=== PATIENT | female | born 1960 | race Caucasian/White ===

== ENCOUNTER 2022-07-26 12:29 | Emergency (ER) | payer BC ==
[~2022-07-26] VITALS: Ht 167.6 cm; Wt 79.4 kg
[2022-07-26] MEDS ORDERED: ZOLOFT20 MG/1 ML PO (12:58)
[2022-07-26] MEDS ORDERED: PERCOCET 5-3251 EACH PO (16:31)
== END 2022-07-26 17:32 | disposition home or self-care (01) ==
LOC: ER 12:29
DX: S99.812A Other specified injuries of left ankle, initial encounter (principal); X50.9XXA Other and unspecified overexertion or strenuous movements or postures, initial encounter; Y93.89 Activity, other specified; Y92.59 Other trade areas as the place of occurrence of the external cause; Z85.43 Personal history of malignant neoplasm of ovary; Z88.0 Allergy status to penicillin